=== PATIENT | female | born 1940 | race African-American/Black ===

== ENCOUNTER 2019-05-11 10:26 | Inpatient (IN) | payer OTHER, BC ==
[2019-05-04 14:51] VITALS: BMI 30.1
--- NOTE | 2019-05-10 23:20 | HP ---
Admitting History and Physical - Admission Chief Complaint: left knee osteoarthritis x years History of Present Illness: 79 year old female presents in regard to their left knee. Longstanding history of left knee osteoarthritis. Patient complains of pain, limited ROM, difficulty ambulating and difficulty completing ADLs. Patient has failed conservative treatment measures including PO medications, injections, exercise programs and activity modification. At this point, patient wishes to proceed with surgical intervention, a left total knee arthroplasty - MAKOplasty. History Source: Patient - Past Medical History Cardiovascular: Yes: HTN ...: No - Past Surgical History Additional Past Surgical History: See written history & physical. - Smoking History Smoking history: Never smoked Have you smoked in the past 12 months: No - Alcohol/Substance Use Hx Alcohol Use: Yes (RARELY) Home Medications - Allergies Allergies/Adverse Reactions: Allergies Allergy/AdvReac Type Severity Reaction Status Date / Time No Known Drug Allergies Allergy Verified 05/04/19 14:43 - Home Medications Home Medications: Ambulatory Orders Amlodipine Besylate 10 mg PO DAILY 05/04/19 Review of Systems - Review of Systems Musculoskeletal: reports: Crepitus (left knee), Decreased ROM (left knee), Joint Pain (left knee), Joint Swelling (left knee) Physical Examination Constitutional: Yes: Well Nourished, No Distress Eyes: Yes: Conjunctiva Clear HENT: Yes: Atraumatic, Normocephalic Neck: Yes: Supple Cardiovascular: Yes: Regular Rate and Rhythm Respiratory: Yes: Regular Gastrointestinal: Yes: Soft ...Rectal Exam: Yes: Deferred Musculoskeletal: Yes: Joint Stiffness (left knee), Joint Swelling (left knee) Assessment/Plan 79 year old female presents in regard to their left knee. Longstanding history of left knee osteoarthritis. Patient complains of pain, limited ROM, difficulty ambulating and difficulty completing ADLs. Patient has failed conservative treatment measures including PO medications, injections, exercise programs and activity modification. At this point, patient wishes to proceed with surgical intervention, a left total knee arthroplasty - MAKOplasty. Pros, cons, risks benefits and alternatives of a left total knee arthroplasty, MAKOplasty were discussed with the patient at length. Patient confirms their understanding and consents to proceed with a left total knee arthroplasty, MAKOplasty.
[~2019-05-11 10:26] MED LIST: CEFAZOLIN 2 GM in DEXTROSE 5%-WATER - 50 ML IVPB ONE; CELECOXIB 200 MG CAPSULE PO ONE; PANTOPRAZOLE 40 MG TABLET (FP) PO ONE; TRANEXAMIC ACID 1000 MG/10 ML VIAL IVPB ONE; TRANEXAMIC ACID 1000 MG/10 ML VIAL IVPUSH ONE; VANCOMYCIN 1,000 MG VIAL (RESTRICTED TO ID ONLY) IVPB ONE; oxyCODONE HCL 10 MG SUSTAINED ACTING TABLET PO ONE
[2019-05-11] MEDS ORDERED: ceFAZolin SODIUM 1 GM VIAL ONE ×2 (10:51→14:50)
[2019-05-11] MEDS ORDERED: VANCOMYCIN 1,000 MG VIAL (RESTRICTED TO ID ONLY) ONE (10:52)
[2019-05-11] MEDS ORDERED: BUPIVACAINE LIPOSOME/PF (EXPAREL) 266 MG/20 ML VIAL ONE (11:10)
[2019-05-11] MEDS ORDERED: SODIUM CHLORIDE 0.9% P/F 10 ML VIAL IJ ONE (11:18)
[2019-05-11] MEDS ORDERED: MIDAZOLAM HCL 2 MG/2 ML SINGLE DOSE VIAL ONE (11:54)
[2019-05-11] MEDS ORDERED: DEXMEDETOMIDINE HCL 200 MCG/2 ML IVPB ONE (12:09)
[2019-05-11] MEDS ORDERED: ePHEDrine SULFATE 50 MG/1 ML AMPULE ONE (12:51)
[2019-05-11] MEDS ORDERED: ONDANSETRON 4 MG/2 ML VIAL IVPUSH PRN ×2 (14:49→16:59)
[2019-05-11] MEDS ORDERED: oxyCODONE HCL 5 MG TABLET PO PRN ×2 (14:54)
[2019-05-11] MEDS ORDERED: VANCOMYCIN 1,000 MG VIAL (RESTRICTED TO ID ONLY) IVPB ONE (15:39)
[2019-05-11] MEDS ORDERED: TRANEXAMIC ACID 1000 MG/10 ML VIAL IVPB ONE (15:51)
[2019-05-11] MEDS ORDERED: ACETAMINOPHEN INJECTION 100 ML IVPB ONE (16:30)
[2019-05-11] MEDS ORDERED: traMADol HCL 50 MG TABLET ONE (16:30)
[2019-05-11] MEDS ORDERED: KETOROLAC TROMETHAMINE 30 MG/1 ML VIAL ONE (16:30)
[2019-05-11] MEDS: ACETAMINOPHEN 1000 MG/100 ML VIAL (NON FORMULARY) IVPB ONE (16:40)
[2019-05-11] MEDS: KETOROLAC TROMETHAMINE 30 MG/1 ML VIAL IVPUSH SCH (16:45)
[2019-05-11] MEDS ORDERED: MAG HYDROX/AL HYDROX/SIMETH 30 ML UNIT-DOSE CUP PO PRN (16:59)
[2019-05-11] MEDS ORDERED: MAGNESIUM HYDROX 2400MG/30ML ORAL SUSPENSION 30 ML CUP PO PRN (16:59)
--- NOTE | 2019-05-11 16:59 | OP ---
Operative Note - Note: Operative Date: 05/11/19 Pre-Operative Diagnosis: left knee OA Operation: Left KATE TKA Post-Operative Diagnosis: Same as Pre-op Surgeon: Ashok Salter Clinical Data Coordinator: Astrid Ruiz Anesthesia: Spinal Estimated Blood Loss (mls): 200
[2019-05-11] MEDS ORDERED: LACTATED RINGERS SOLUTION 1,000 ML IV SCH (17:00)
[2019-05-11] MEDS: traMADol HCL 50 MG TABLET PO SCH (17:11)
[2019-05-11] MEDS: CEFAZOLIN 2 GM/D5W 2 GM/50 ML ML IVPB SCH (18:20)
[2019-05-11] MEDS: SENNOSIDES/DOCUSATE COMBO (SENNA PLUS) TABLET (UD) PO SCH (21:28)
[2019-05-11] MEDS: ACETAMINOPHEN 325 MG TABLET (FP) PO SCH (21:29)
[2019-05-11] MEDS: ASCORBIC ACID 500 MG TABLET (FP) PO SCH (21:29)
[2019-05-11] MEDS: GABAPENTIN 300 MG CAPSULE (FP) PO SCH (21:29)
[2019-05-11] MEDS: CELECOXIB 200 MG CAPSULE PO SCH (21:29)
[2019-05-12] MEDS ORDERED: DEXAMETHASONE SOD PHOSPHATE 10 MG/1 ML VIAL IVPB ONE
[2019-05-12] MEDS: traMADol HCL 50 MG TABLET PO SCH ×5 (00:02→23:27)
[2019-05-12] MEDS: CEFAZOLIN 2 GM/D5W 2 GM/50 ML ML IVPB SCH (02:19)
[2019-05-12] MEDS: ACETAMINOPHEN 325 MG TABLET (FP) PO SCH ×4 (02:21→21:25)
[2019-05-12] MEDS: KETOROLAC TROMETHAMINE 30 MG/1 ML VIAL IVPUSH SCH ×3 (05:30→12:00)
[2019-05-12 07:56] LABS: HEMOGLOBIN 11.7 GM/dl (10.7-15.3); MCHC 33.3 g/dl (32.0-36.0); MEAN CELL VOLUME 96.1 fl (80-96); PLATELET COUNT 277 K/MM3 (134-434); RBC 3.65 M/mm3 (3.60-5.2); RDW 12.8 % (11.6-15.6); WHITE BLOOD COUNT 8.6 K/mm3 (4.0-10.8)
[2019-05-12 08:03] LABS: CALCIUM 9.1 mg/dl (8.5-10); CREATININE 1.3 mg/dl (0.55-1.3); POTASSIUM 4.4 mmol/L (3.5-5.1)
[2019-05-12] MEDS: ASPIRIN 325 MG TABLET PO SCH (08:15)
[2019-05-12] MEDS: PANTOPRAZOLE 40 MG TABLET (FP) PO SCH (09:18)
[2019-05-12] MEDS: ASCORBIC ACID 500 MG TABLET (FP) PO SCH ×2 (09:18→21:26)
[2019-05-12] MEDS: SENNOSIDES/DOCUSATE COMBO (SENNA PLUS) TABLET (UD) PO SCH ×2 (09:18→21:26)
[2019-05-12] MEDS: GABAPENTIN 300 MG CAPSULE (FP) PO SCH ×2 (09:18→21:25)
[2019-05-12] MEDS: amLODIPine BESYLATE 10 MG TABLET (FP) PO SCH (09:18)
[2019-05-12] MEDS: MULTIVITAMINS (DAILY MVI) TABLET (FP) PO SCH (09:18)
--- NOTE | 2019-05-12 09:18 | PN ---
Progress Note (short form) - Note Progress Note: Anesthesia postop note POD#1, S/P left KATE TKA under spinal anesthesia and block. Pat seen and examined. VSS. No apparent post anesthesia complications. Pain well controlled, scale 2-4. Ambulating.
[2019-05-12] MEDS: CELECOXIB 200 MG CAPSULE PO SCH ×2 (09:19→21:25)
--- NOTE | 2019-05-13 01:27 | PN ---
Progress Note (short form) - Note Progress Note: Pt seen and examined. Doing well. AVSS Selected Entries 05/12/19 22:38 Temperature 97.9 F Pulse Rate 65 Respiratory 18 Rate Blood Pressure 125/52 L O2 Sat by Pulse 97 Oximetry (%) Oxygen Delivery Room Air Method Laboratory Tests 05/12/19 05/12/19 07:20 07:20 WBC 8.6 Hgb 11.7 Hct 35.0 Plt Count 277 Sodium 140 Potassium 4.4 Chloride 103 Carbon Dioxide 27 Anion Gap 10 BUN 18.0 Creatinine 1.3 Est GFR (CKD-EPI)AfAm 44.56 Est GFR (CKD-EPI)NonAf 38.44 Random Glucose 114 H Calcium 9.1 Gen: NAD LLE: c/d/i, (+) foot drop and quad weakness A/P POD#1 s/p L TKA PT/OOB - WBAT LLE D/C home tomorrow after PT if foot drop resolves after nerve block wears off.
--- NOTE | 2019-05-13 01:31 | DS ---
Physical Examination Vital Signs: Vital Signs Temperature 97.9 F 05/12/19 22:38 Pulse Rate 65 05/12/19 22:38 Respiratory Rate 18 05/12/19 22:38 Blood Pressure 125/52 L 05/12/19 22:38 O2 Sat by Pulse Oximetry (%) 97 05/12/19 22:38 Labs: CBC, BMP 05/12/19 07:20 05/12/19 07:20 Discharge Summary Reason For Visit: OSTEOARTHRITIS LEFT KNEE Current Active Problems Osteoarthritis of left knee (Acute) Procedures: Principal: left KATE TKA Hospital Course: Admitted for elective surgery. Procedure performed without complications. Pt received postoperative antibiotic prophylaxis and DVT ppx. Ambulated with physical therapy. Stable for discharge home with outpatient followup. Condition: Stable - Instructions Diet, Activity, Other Instructions: Dr. Salter - Knee Replacement Instructions Keep the Aquacel dressing on until removed by Dr. Salter in 10-14 days - it is antibacterial and waterproof and you can shower with it on. Call the office for a follow-up appointment with Dr. Salter in 10-14 days. [phone] Take one ENTERIC-COATED Aspirin 325mg daily for 6 weeks to prevent blood clots in your legs. Take one Pantoprazole 40mg daily for 6 weeks to protect against heartburn and ulcers. Take Cephalexin (antibiotic) 3x/day for 10 days to help prevent skin infection. Take Celebrex 200mg daily for 30 days to reduce swelling and inflammation. Take a multivitamin, stool softener, and extra Vitamin C supplement daily. For pain: *Mild pain (1-3/10): Take 1 Tramadol tablet every 4 hours as needed. Moderate pain (4-6/10): Take 1 Tramadol tablet and 1 Percocet tablet every 4 hours as needed. Severe pain (7-10/10): Take 1 Tramadol tablet and 2 Percocet tablets every 4 hours as needed. Activity: You can put as much weight on the operative leg as you want. Right after you get home, there will be a physical therapist coming to your house to help you walk around and bend/straighten your knee. After your follow-up appointment, you will be sent for more intensive outpatient physical therapy which will include machines and equipment that the home therapist cannot bring to your house. Always use a walker or cane for balance and to prevent falls. Expect to see swelling/bruising from the operative site all the way down to your toes. Wear the compression stocking on the operative side during the day to minimize how much swelling there is in your foot/ankle. Don't wear the stocking at night. You don't have to wear a stocking on the other side. Disposition: [facility]/HOME HEALTH CARE - Home Medications Comprehensive Discharge Medication List: Ambulatory Orders Amlodipine Besylate 10 mg PO DAILY 05/04/19 Ascorbic Acid [Vitamin C -] 500 mg PO BID tablet 05/13/19 Aspirin [ASA -] 325 mg PO DAILY@0800 tablet 05/13/19 Celecoxib [CeleBREX -] 200 mg PO DAILY #30 capsule 05/13/19 Cephalexin Monohydrate [Keflex -] 500 mg PO TID #30 capsule 05/13/19 Multivitamins [Multivit ([facility] Formulary)] 1 tab PO DAILY tab 05/13/19 Oxycodone HCl/Acetaminophen [Percocet 5-325 mg Tablet] 1 - 2 tab PO Q4H PRN #60 tablet MDD 10 05/13/19 Pantoprazole Sodium [Protonix -] 40 mg PO DAILY #40 tablet.ec 05/13/19 Sennosides/Docusate Sodium [Pericolace -] 2 tablet PO BID tablet 05/13/19 traMADol HCL [Ultram -] 50 mg PO Q4H PRN #42 tablet MDD 6 05/13/19
[2019-05-13] MEDS: ACETAMINOPHEN 325 MG TABLET (FP) PO SCH ×5 (03:25→21:25)
[2019-05-13] MEDS: traMADol HCL 50 MG TABLET PO SCH ×4 (05:42→23:33)
[2019-05-13 07:26] LABS: HEMATOCRIT 31.3 % (32.4-45.2); HEMOGLOBIN 10.7 GM/dl (10.7-15.3); MCH 33.1 pg (25.7-33.7); MCHC 34.2 g/dl (32.0-36.0); MEAN CELL VOLUME 96.6 fl (80-96); MEAN PLT VOLUME 8.9 fl (7.5-11.1); PLATELET COUNT 228 K/MM3 (134-434); RBC 3.23 M/mm3 (3.60-5.2); RDW 12.6 % (11.6-15.6); WHITE BLOOD COUNT 8.6 K/mm3 (4.0-10.8)
[2019-05-13] MEDS: PANTOPRAZOLE 40 MG TABLET (FP) PO SCH (10:08)
[2019-05-13] MEDS: CELECOXIB 200 MG CAPSULE PO SCH ×2 (10:08→21:26)
[2019-05-13] MEDS: amLODIPine BESYLATE 10 MG TABLET (FP) PO SCH (10:08)
[2019-05-13] MEDS: GABAPENTIN 300 MG CAPSULE (FP) PO SCH ×2 (10:08→21:26)
[2019-05-13] MEDS: ASPIRIN 325 MG TABLET PO SCH (10:08)
[2019-05-13] MEDS: SENNOSIDES/DOCUSATE COMBO (SENNA PLUS) TABLET (UD) PO SCH ×2 (10:08→21:26)
[2019-05-13] MEDS: ASCORBIC ACID 500 MG TABLET (FP) PO SCH ×2 (10:08→21:26)
[2019-05-13] MEDS: MULTIVITAMINS (DAILY MVI) TABLET (FP) PO SCH (10:08)
[2019-05-13] MEDS: LACTATED RINGERS SOLUTION 1,000 ML IV SCH ×3 (10:09→15:02)
[2019-05-13] MEDS: ACETAMINOPHEN 1000 MG/100 ML VIAL (NON FORMULARY) IVPB ONE (10:10)
[2019-05-14] MEDS: traMADol HCL 50 MG TABLET PO SCH ×3 (05:33→16:46)
[2019-05-14] MEDS: ACETAMINOPHEN 325 MG TABLET (FP) PO SCH ×2 (05:33→09:41)
[2019-05-14] MEDS: ASPIRIN 325 MG TABLET PO SCH (07:58)
[2019-05-14] MEDS: ASCORBIC ACID 500 MG TABLET (FP) PO SCH (09:41)
[2019-05-14] MEDS: amLODIPine BESYLATE 10 MG TABLET (FP) PO SCH (09:41)
[2019-05-14] MEDS: PANTOPRAZOLE 40 MG TABLET (FP) PO SCH (09:41)
[2019-05-14] MEDS: SENNOSIDES/DOCUSATE COMBO (SENNA PLUS) TABLET (UD) PO SCH (09:41)
[2019-05-14] MEDS: GABAPENTIN 300 MG CAPSULE (FP) PO SCH (09:41)
[2019-05-14] MEDS: CELECOXIB 200 MG CAPSULE PO SCH (09:41)
[2019-05-14] MEDS: MULTIVITAMINS (DAILY MVI) TABLET (FP) PO SCH (09:41)
[2019-05-14 14:22] VITALS: BP 95/48; PULSE 72; TEMP 98.5
[2019-05-14] MEDS: LACTATED RINGERS SOLUTION 1,000 ML IV SCH (16:46)
--- NOTE | 2019-05-17 12:33 | SPEC ---
DATE OF OPERATION: 05/11/2019 PREOPERATIVE DIAGNOSIS: Left knee osteoarthritis. POSTOPERATIVE DIAGNOSIS: Left knee osteoarthritis. PROCEDURE: Left total knee replacement with MAKOplasty robotic navigation. ATTENDING: Jagruti Mckeon MD TRANSFORMER MOLDER: ROBERTO Mercado ANESTHESIA: Spinal plus sedation. ESTIMATED BLOOD LOSS: 200 mL. COMPLICATIONS: None. DISPOSITION: The patient was transferred to the PACU in stable condition. IMPLANTS USED: Dung Triathlon TS size 3 femoral component with 50 mm x 12 mm femoral stem, Dung Triathlon universal tibial baseplate size 2 with 50 mm x 12 mm stem, 22 mm total stabilized polyethylene component, 29 mm patellar component. INDICATIONS: This is an 79-year-old female who presented to the office with severe left knee pain and valgus deformity. She was seen and examined by Dr. Mckeon and diagnosed with severe left knee osteoarthritis. The patient was initially treated nonoperatively with injections and medications and physical therapy but continued to have severe pain and ambulatory dysfunction as well as notable valgus deformity of left leg. She was therefore indicated for a left total knee replacement with MAKOplasty robotic navigation. The risks, benefits, and alternatives to the procedure were explained to the patient in great detail and she elected to proceed with surgery. On the day of surgery, the patient was taken to the operating room and placed on the OR table. Spinal anesthesia was administered by the anesthesiologist. The patient was then positioned supine on the table and all bony prominences were padded. The knee was then prepped and draped in the usual sterile fashion and intravenous antibiotics were given for infection prophylaxis. A surgical time-out was then performed with the team, and the patients identity, procedure, side, availability of implants, and the administration of antibiotics was confirmed. With the knee flexed, a midline incision was made and carried down through the subcutaneous fat to the underlying retinaculum. A medial parapatellar arthrotomy was performed. This was followed by a subperiosteal dissection of the tissue off the proximal, medial tibia. A portion of fat pad was removed from under the patellar tendon, and a small portion of fat was excised off the distal supracondylar femur. Electrocautery and an Aquamantys bipolar sealing device were used to achieve hemostasis. The knee was then flexed further and the anterior horn of the lateral meniscus was released from the midline. Next, the anterior and posterior cruciate ligaments were transected. Grade 4 changes were noted diffusely throughout the knee. Femoral and tibial checkpoints were then placed in the appropriate location using a mallet. Two parallel bicortical self-drilling pins were placed in the tibial diaphysis after making stab incisions and bluntly dissecting down to bone. Two pins were then placed in the distal supracondylar femur. The eelusion navigation arrays were then attached to both the femoral and tibial pins and the lower extremity was then registered to the robotic navigation device using various joint movements, as well as inputting several dozen reference points. The knee was then taken through a full range of motion with a corrective force applied. Alignment in varus/valgus as well as flexion/extension and soft tissue balance was measured in various positions. The navigation device showed a numerical and graphic representation of the soft tissue balance. The components were repositioned virtually using the software until optimal soft tissue balance was achieved on screen. Once this was accomplished, the final plan was saved and sent to the robot. Self-retaining retractors were then placed at the joint line for exposure and protection of the collateral ligaments. The robot was brought into the sterile field and registered with the navigation device. The robotic arm with attached oscillating saw blade was then used to perform femoral and tibial bone cuts as per the saved software plan. The femoral box cut was made using the appropriately sized manual cutting guide. The knee was then irrigated. Trial components were placed and the knee was taken through a full range of motion to assess soft tissue balance and alignment. The range of motion was found to be excellent and the soft tissue balance was optimal and according to plan. The knee was then put into extension and the patella everted. The synovium around the patella was circumscribed with electrocautery. A caliper was used to measure the patellar thickness and a saw was then used to resect the patella at the chondro-osseous junction. The cut surface was then sized and drilled for the appropriate patellar button, with care taken to medialize it. A trial patella was then placed and the knee was again taken through a full range of motion. The knee was found to have both good balance and good patellar tracking. All of the components were removed except the tibial base plate. The appropriate instrumentation was used to drill and punch the proximal tibia for the keel of the final component. All bony surfaces were then cleaned with pulsatile lavage and dried. Bone cement was then prepared on the back table, and final components were cemented in place in the usual fashion. Extruded cement was removed. The polyethylene trial was placed, the knee was put into extension, and axial pressure was applied for compression while the cement hardened. The patellar button was similarly cemented into place. Once the cement had hardened, the knee was taken through a full range of motion to assess stability, balance, and patellar tracking. This was found to be optimal and the trial polyethylene was exchanged for the appropriately sized real implant. The wound was then thoroughly irrigated with normal saline. A 3-minute dilute Betadine lavage was performed. The knee was again irrigated using a pulsatile lavage device. A periarticular injection was used to locally infiltrate the capsular tissues surrounding the implant and prosthesis. Then No. 1 Polysorb and 0 VLoc 180 barbed sutures were used to close the arthrotomy. Then No. 1 Polysorb and 2-0 VLoc 90 sutures were used in the subcutaneous tissues. Then 4-0 undyed Vicryl and Dermabond skin adhesive was used to close the stab incisions made for the navigation pins. The skin was closed using both 3-0 VLoc 90 suture in a running subcuticular fashion and Dermabond skin adhesive. Once this was completed a sterile Aquacel dressing and compressive Alessio-wrap was applied. The patient was then awakened and taken to the PACU in stable condition. ADDENDUM: Intraoperatively it was found that the patient had extremely poor bone quality. The cut surface of the cancellous bone was soft and easily compressible by hand; therefore, we elected to use stemmed components on both the femur and the tibia. Triathlon TS revision components were used in lieu of standard total knee replacement components. A stem was placed both in the femur and in the tibia. Due to her extreme valgus deformity, there was significant attenuation of the medial collateral ligament. This led to significant laxity when the leg was straightened, requiring a 22-mm polyethylene component that was total stabilized despite a very conservative tibial resection. JAGRUTI MCKEON M.D. [id number]
--- NOTE | 2019-05-18 15:50 | PATH ---
Surgical Pathology Report Patient Name: ELIECER HERNANDEZ Med. Rec. #: [id number] /Age/Gender: 1940 (Age: 79) / F Account: [id number] Location: [facility] MED-SURG Taken: 05/11/2019 Received: 05/11/2019 Reported: 05/18/2019 Physicians: Ashok Salter M.D. Specimen(s) Received LEFT KNEE BONES Clinical History Left knee, osteoarthritis Final Diagnosis KNEE BONE, LEFT, TOTAL KNEE REPLACEMENT: DEGENERATIVE JOINT DISEASE. Electronically Signed Annia Dowling M.D. Gross Description Received in formalin, labeled "left knee bones" is a 9 x 8.5 x 2 cm, aggregate of multiple portions of bone and soft tissue. The tibial plateau measures 7.5 x 6 x 1 cm. The articular surfaces show areas of eburnation and appear granular. The underlying trabecular bone is yellow and hard. Slat Twister sections are submitted in one cassette, following decalcification.
== END 2019-05-14 17:18 | disposition home health service (06) | DRG 470 ==
LOC: FM/S 10:26
PROVIDERS: ADMIT Student in an Organized Health Care Education/Training Program; ATTEND Student in an Organized Health Care Education/Training Program
PROC: 8E0Y0CZ Robotic Assisted Procedure of Lower Extremity, Open Approach (ICD-10-PCS; 2019-05-11)
PROC: 0SRD0J9 Replacement of Left Knee Joint with Synthetic Substitute, Cemented, Open Approach (ICD-10-PCS; principal; 2019-05-11 11:00)
DX: M17.12 Unilateral primary osteoarthritis, left knee (principal); I10 Essential (primary) hypertension; M21.372 Foot drop, left foot
CPT/HCPCS: 36415; 73560-TC-LT-FY; 80048; 85027; 88304-TC; 88311-TC; 94760; 97116-GP; 97163-GP; J0131; J1100